=== PATIENT | male | born 1985 | race Caucasian/White ===

== ENCOUNTER 2021-10-15 09:05 | Inpatient (IN) | payer BC ==
[2021-10-15 09:54] LABS: BLOOD UREA NITROGEN,BUN 10 mg/dL (7.0-18.0); CARBON DIOXIDE,CO2 27.5 mmol/L (21.0-32.0); CHLORIDE,CL 99 mmol/L (98-107); GLUCOSE RANDOM 92 mg/dL (74-106); POTASSIUM,K 4.4 mmol/L (3.5-5.1); SODIUM,NA 135 mmol/L (136-148)
[2021-10-15 09:56] LABS: ESTIMATED GFR 99 mL/min (>60)
[2021-10-15] MEDS ORDERED: Iopamidol 755 MG/ML 500 ML Multipack Bottle IVPUSH STA (10:51)
[2021-10-15] MEDS ORDERED: Heparin Sodium 5,000 Units/ML Vial IVPUSH ONE ×3 (11:39→20:44)
[2021-10-15] MEDS ORDERED: Heparin Sodium/0.45% NaCl 500 ML IV SCH (11:45)
[2021-10-15] MEDS ORDERED: Albuterol/Ipratropium 3.0-0.5 MG/3 ML Neb Soln NEB PRN (13:54)
[2021-10-15] MEDS ORDERED: Ondansetron 4 MG/2 ML SDV IVPUSH PRN (13:54)
[2021-10-15] MEDS: Acetaminophen 325 MG Tab PO PRN (15:52)
[2021-10-15] MEDS: Heparin Sodium/0.45% NaCl 500 ML IV SCH (21:39)
[2021-10-15] MEDS ORDERED: Morphine 2 MG/ML SYRINGE IVPUSH PRN (22:25)
[2021-10-15] MEDS: Lactated Ringers 1,000 ML IV SCH (23:49)
[2021-10-16] MEDS: Heparin Sodium/0.45% NaCl 500 ML IV SCH ×3 (01:06→23:29)
[2021-10-16] MEDS: Acetaminophen 325 MG Tab PO PRN ×3 (01:19→15:56)
[2021-10-16] MEDS: Lactated Ringers 1,000 ML IV SCH ×2 (07:33→17:37)
[2021-10-16 08:04] LABS: CARBON DIOXIDE,CO2 23.9 mmol/L (21.0-32.0); POTASSIUM,K 3.8 mmol/L (3.5-5.1)
[2021-10-16] MEDS: oxyCODONE 5 MG Tab PO PRN ×2 (11:23→22:12)
[2021-10-16] MEDS ORDERED: Iopamidol 755 MG/ML 500 ML Multipack Bottle IVPUSH STA (13:08)
[2021-10-17] MEDS: Acetaminophen 325 MG Tab PO PRN ×3 (01:40→18:17)
[2021-10-17] MEDS: Lactated Ringers 1,000 ML IV SCH (01:42)
[2021-10-17 07:15] LABS: CARBON DIOXIDE,CO2 25.6 mmol/L (21.0-32.0); POTASSIUM,K 3.8 mmol/L (3.5-5.1)
[2021-10-17] MEDS: oxyCODONE 5 MG Tab PO PRN ×2 (08:11→22:27)
[2021-10-17] MEDS: Heparin Sodium/0.45% NaCl 500 ML IV SCH ×2 (10:24→21:03)
[2021-10-18] MEDS: Acetaminophen 325 MG Tab PO PRN ×2 (03:44→12:25)
[2021-10-18 07:22] LABS: CARBON DIOXIDE,CO2 27.3 mmol/L (21.0-32.0)
[2021-10-18] MEDS ORDERED: Apixaban 5 MG Tab PO SCH (09:00)
[2021-10-18] MEDS: oxyCODONE 5 MG Tab PO PRN (09:30)
== END 2021-10-18 14:35 | disposition home or self-care (01) | DRG 197 ==
LOC: MW.ED 09:05 → MW.MS 15:16 → OBSVTOIN 10-17 09:00 → MW.MS 10-17 18:40
PROVIDERS: ADMIT Student in an Organized Health Care Education/Training Program; ATTEND Student in an Organized Health Care Education/Training Program
DX: I82.412 Acute embolism and thrombosis of left femoral vein (principal); I26.99 Other pulmonary embolism without acute cor pulmonale; I82.4Z2 Acute embolism and thrombosis of unspecified deep veins of left distal lower extremity; Z20.822 Contact with and (suspected) exposure to COVID-19; Z88.1 Allergy status to other antibiotic agents
CPT/HCPCS: 36415; 71275; 71275-26; 75635; 75635-26; 80053; 83880; 84484; 85025; 85610; 85730; 93005; 93010; 93306; 93971-26-LT; 93971-LT; 96365; 96366; 99219; 99226; 99233; 99239; 99285-25; 99291; A9270-GY; J1644; J2270; J7120; Q9967; U0002